=== PATIENT | female | born 1970 | race Caucasian/White ===

== ENCOUNTER 2020-07-08 11:01 | Outpatient (REF) | payer OTHER, SELFPAY ==
[2020-07-08 11:36] LABS: Hematocrit 29.4 % (37-47); Hemoglobin 9.2 g/dl (12.0-16.0); Mean Corpuscular HGB Conc 31.3 g/dl (31.0-35.0); Mean Corpuscular Hemoglobin 26.1 pg (27.0-33.0); Mean Corpuscular Volume 83.5 fL (80-98); Mean Platelet Volume 10.7 fL (9.4-12.3); Platelet Count 210 X10*3/uL (160-400); Red Blood Count 3.52 X10*6/uL (4.20-5.50); Red Cell Distribution Width 13.9 % (11.0-16.0); White Blood Count 7.3 X10*3/uL (4.8-10.8)
[2020-07-08 12:14] LABS: Alanine Aminotransferase 18 U/L (0-31); Alkaline Phosphatase 80 U/L (39-117); Anion Gap 10 (12-20); Aspartate Amino Transferase 20 U/L (5-31); Bilirubin Total 0.5 mg/dL (0.0-1.0); Blood Urea Nitrogen 11 mg/dL (9-16); Calcium 8.6 mg/dL (8.4-10.2); Carbon Dioxide 26 mmol/L (22-29); Chloride 108 mmol/L (96-108); Cholesterol 166 mg/dL; Estimated Glomerular Filt Rate > 60; Glucose Fasting 129 mg/dL (60-99); HDL Cholesterol 45 mg/dL; LDL Cholesterol Calculated 92 mg/dl; Potassium 4.1 mmol/L (3.3-5.1); Sodium 140 mmol/L (135-145); Total Protein 6.5 g/dL (6.5-8.0); Triglycerides 145 mg/dL
[2020-07-08 12:18] LABS: Microalbum/Creatinine Ratio Ur 47.4 ug/mg cr
== END 2020-07-08 11:02 | disposition home or self-care (01) ==
LOC: HO.LAB 11:01
PROVIDERS: PCP Physician Assistant; Visit Provider Physician Assistant
DX: I10 Essential (primary) hypertension (principal)
CPT/HCPCS: 36415; 80053; 80061; 82043; 84443; 85027

== ENCOUNTER 2021-01-06 09:53 | Outpatient (REF) | payer OTHER, SELFPAY ==
--- NOTE | ~2021-01-06 | XR_ITS ---
EXAMINATION: XR CHEST CLINICAL INFORMATION: Shortness of breath COMPARISON: None TECHNIQUE: 2 views of the chest were obtained. FINDINGS: Cardiac silhouette is normal in size. The lungs are well aerated. There is no lobar consolidation. No pleural effusion or pneumothorax. Mild degenerative changes of the thoracic spine. XR/XR chest 2V IMPRESSION: No acute pulmonary pathology.
== END 2021-01-06 09:54 | disposition home or self-care (01) ==
LOC: HO.XRAY 09:53
PROVIDERS: PCP Physician Assistant; Visit Provider Physician Assistant
DX: R06.02 Shortness of breath (principal)
CPT/HCPCS: 71046

== ENCOUNTER 2021-04-22 16:24 | Outpatient (REF) | payer OTHER, SELFPAY ==
[2021-04-22 16:38] LABS: Hematocrit 30.9 % (37.0-47.0); Hemoglobin 8.6 g/dl (12.0-16.0); Mean Corpuscular HGB Conc 27.8 g/dl (31.0-35.0); Mean Corpuscular Hemoglobin 18.7 pg (27.0-33.0); Mean Corpuscular Volume 67.3 fL (80.0-98.0); Mean Platelet Volume 9.7 fL (9.4-12.3); Platelet Count 215 X10*3/uL (160-400); Red Blood Count 4.59 X10*6/uL (4.20-5.50); Red Cell Distribution Width 17.1 % (11.0-16.0); White Blood Count 8.4 X10*3/uL (4.8-10.8)
[2021-04-22 16:54] LABS: Estimated Average Glucose 137 mg/dL; Hemoglobin A1c % 6.4 %
[2021-04-22 17:13] LABS: Alanine Aminotransferase 12 U/L (0-31); Albumin Level 4.1 g/dL (3.5-5.0); Alkaline Phosphatase 88 U/L (39-117); Anion Gap 13 (12-20); Aspartate Amino Transferase 13 U/L (5-31); Bilirubin Total 0.4 mg/dL (0.0-1.0); Blood Urea Nitrogen 10 mg/dL (9-16); Calcium 9.1 mg/dL (8.4-10.2); Carbon Dioxide 23 mmol/L (22-29); Chloride 106 mmol/L (96-108); Cholesterol 171 mg/dL; Estimated Glomerular Filt Rate > 60; Glucose Fasting 116 mg/dL (60-99); HDL Cholesterol 49 mg/dL; Iron 18 mcg/dL (30-160); LDL Cholesterol Calculated 99 mg/dl; Potassium 4.3 mmol/L (3.3-5.1); Sodium 138 mmol/L (135-145); Total Protein 6.8 g/dL (6.5-8.0); Triglycerides 119 mg/dL
[2021-04-22 17:16] LABS: TSH reflex Free T4 1.36 uIU/mL (0.32-4.0)
[2021-04-22 17:23] LABS: Percent Iron Saturation 4 % (15-50); Total Iron Binding Capacity 504 mcg/dL (228-428); Unsaturated Iron Binding 486 ug/dL
== END 2021-04-22 16:25 | disposition home or self-care (01) ==
LOC: HO.LAB 16:24
PROVIDERS: PCP Physician Assistant; Visit Provider Physician Assistant
DX: E78.2 Mixed hyperlipidemia (principal); R73.03 Prediabetes; R14.0 Abdominal distension (gaseous); I10 Essential (primary) hypertension; D50.9 Iron deficiency anemia, unspecified
CPT/HCPCS: 36415; 80053; 80061; 83036; 83540; 84443; 85027

== ENCOUNTER → 2021-04-28 08:00 | Outpatient (REF) | payer OTHER, SELFPAY ==
--- NOTE | 2021-04-28 08:04 | CA_ITS ---
Acquisition Time: 2021-04-28 08:07:55 Total Exercise Time: 00:01:27 Test Indications: SHORTNESS OF BREATH Medications: Protocol: ALBERTO Max HR: 160 BPM 93% of Pred: 171 BPM Max BP: 168/092 mmHG Max Work Load: 3.6 METS Exercise stress test with exercis 1 min 27 sec of Alberto protocol, with moderat e shortness of breath and request to stop exercise, with report of moderate pressure sensation to her epigastric area, without arrythmia, with normotensive and brisk chronotropic response to exercise, achieving 94% MPHR, with nondiagnostic EKG for ischemia due to suboptimal exercise time, however no ischemic changes noted at acheived workload. Once test completed, Pt reports having anemia. Labs reviewed in system shows Hgb 8.6, Hct 30.9 which likely contributes to her sob. Test reviewed with Dr Lua. Msg sent to Valerio VO regarding test results and recommendation for a pharmacological nuclear stress test once anemia is corrected. Referred By: Mal Vernon Overread By: QI FORREST
== END ==
LOC: HO.CARD 08:00
PROVIDERS: Visit Provider Physician Assistant
DX: R06.02 Shortness of breath (principal)
CPT/HCPCS: 93017

== ENCOUNTER 2021-04-29 08:23 | Outpatient (REF) | payer OTHER, SELFPAY ==
--- NOTE | ~2021-04-29 | US_ITS ---
EXAMINATION: US ABDOMEN COMPLETE CLINICAL INFORMATION: Abdominal distention. COMPARISON: None TECHNIQUE: Real-time imaging of the abdominal viscera. FINDINGS: PANCREAS: Normal. ABDOMINAL AORTA: The proximal, mid, and distal segments are normal in caliber. INFERIOR VENA CAVA: Visualized portions are normal. LIVER: The liver is normal in size. The liver contour is normal. There is diffuse liver echogenicity. No focal hepatic lesion. There is no intrahepatic biliary duct dilatation seen. GALLBLADDER: Normal. The gallbladder is physiologically distended without evidence of stones, sludge, polyps, wall thickening or pericholecystic fluid. COMMON BILE DUCT: Normal in caliber measuring 0.5 cm in diameter. RIGHT KIDNEY: Normal. No hydronephrosis. No renal calculi or focal parenchymal lesions. The kidney measures 11.5 cm in maximum dimension. LEFT KIDNEY: Normal. No hydronephrosis. No renal calculi or focal parenchymal lesions. The kidney measures 12.5 cm in maximum dimension. SPLEEN: Normal. The spleen measures 12.3 cm in maximum dimension. FREE FLUID: None. US/US abdomen complete IMPRESSION: Diffuse hepatic steatosis without focal lesion. The rest of the abdominal ultrasound is unremarkable.
== END 2021-04-29 08:24 | disposition home or self-care (01) ==
LOC: HO.HMGCX 08:23
PROVIDERS: PCP Physician Assistant; Visit Provider Physician Assistant
DX: R14.0 Abdominal distension (gaseous) (principal)
CPT/HCPCS: 76700

== ENCOUNTER 2022-03-02 11:54 | Outpatient (REF) | payer OTHER, SELFPAY ==
[2022-03-02 13:32] LABS: Hematocrit 21.5 % (37.0-47.0); Mean Corpuscular HGB Conc 30.2 g/dl (31.0-35.0); Mean Corpuscular Hemoglobin 24.4 pg (27.0-33.0); Mean Corpuscular Volume 80.8 fL (80.0-98.0); Mean Platelet Volume 10.9 fL (9.4-12.3); Platelet Count 223 X10*3/uL (160-400); Red Blood Count 2.66 X10*6/uL (4.20-5.50); Red Cell Distribution Width 14.1 % (11.0-16.0); White Blood Count 5.9 X10*3/uL (4.8-10.8)
[2022-03-02 13:42] LABS: Hemoglobin 6.5 g/dl (12.0-16.0)
[2022-03-02 13:46] LABS: Alanine Aminotransferase 15 U/L (0-31); Albumin Level 3.8 g/dL (3.5-5.0); Alkaline Phosphatase 75 U/L (39-117); Anion Gap 12 (12-20); Aspartate Amino Transferase 17 U/L (5-31); Bilirubin Total 0.3 mg/dL (0.0-1.0); Blood Urea Nitrogen 12 mg/dL (9-16); Calcium 8.8 mg/dL (8.4-10.2); Carbon Dioxide 24 mmol/L (22-29); Chloride 106 mmol/L (96-108); Estimated Glomerular Filt Rate > 60; Glucose Fasting 124 mg/dL (60-99); Iron 24 mcg/dL (30-160); Percent Iron Saturation 5 % (15-50); Potassium 4.3 mmol/L (3.3-5.1); Sodium 138 mmol/L (135-145); Total Iron Binding Capacity 498 mcg/dL (228-428); Total Protein 6.1 g/dL (6.5-8.0); Unsaturated Iron Binding 474 ug/dL
[2022-03-02 14:06] LABS: TSH reflex Free T4 2.75 uIU/mL (0.32-4.0)
[2022-03-02 14:20] LABS: Creatinine Urine 186.71 mg/dL; Microalbum/Creatinine Ratio Ur 13.3 ug/mg cr
== END 2022-03-02 11:55 | disposition home or self-care (01) ==
LOC: HO.10HDL 11:54
PROVIDERS: Visit Provider Physician Assistant
DX: D50.0 Iron deficiency anemia secondary to blood loss (chronic) (principal); I10 Essential (primary) hypertension; R73.03 Prediabetes
CPT/HCPCS: 36415; 80053; 82043; 83540; 84443; 85027

== ENCOUNTER 2022-09-06 09:53 | Outpatient (REF) | payer OTHER, SELFPAY ==
[2022-09-06 10:35] LABS: Hematocrit 34.6 % (37.0-47.0); Hemoglobin 10.8 g/dl (12.0-16.0); Mean Corpuscular HGB Conc 31.2 g/dl (31.0-35.0); Mean Corpuscular Hemoglobin 24.8 pg (27.0-33.0); Mean Corpuscular Volume 79.5 fL (80.0-98.0); Mean Platelet Volume 10.9 fL (9.4-12.3); Platelet Count 223 X10*3/uL (160-400); Red Blood Count 4.35 X10*6/uL (4.20-5.50); Red Cell Distribution Width 15.1 % (11.0-16.0); White Blood Count 8.5 X10*3/uL (4.8-10.8)
[2022-09-06 11:56] LABS: Alanine Aminotransferase 13 U/L (0-31); Albumin Level 3.7 g/dL (3.5-5.0); Alkaline Phosphatase 99 U/L (39-117); Anion Gap 12 (12-20); Aspartate Amino Transferase 17 U/L (5-31); Bilirubin Total 0.4 mg/dL (0.0-1.0); Blood Urea Nitrogen 14 mg/dL (9-16); Calcium 9.3 mg/dL (8.4-10.2); Carbon Dioxide 24 mmol/L (22-29); Chloride 105 mmol/L (96-108); Cholesterol 171 mg/dL; Estimated Glomerular Filt Rate > 60; Glucose Fasting 127 mg/dL (60-99); HDL Cholesterol 45 mg/dL; Iron 40 mcg/dL (30-160); LDL Cholesterol Calculated 104 mg/dl; Percent Iron Saturation 9 % (15-50); Potassium 4.3 mmol/L (3.3-5.1); Sodium 137 mmol/L (135-145); Total Iron Binding Capacity 437 mcg/dL (228-428); Total Protein 6.2 g/dL (6.5-8.0); Triglycerides 110 mg/dL; Unsaturated Iron Binding 397 ug/dL
[2022-09-06 15:09] LABS: Creatinine Urine 172.34 mg/dL; Microalbum/Creatinine Ratio Ur 22.6 ug/mg cr
== END 2022-09-06 09:54 | disposition home or self-care (01) ==
LOC: HO.10HDL 09:53
PROVIDERS: Visit Provider Physician Assistant
DX: D50.0 Iron deficiency anemia secondary to blood loss (chronic) (principal); E78.2 Mixed hyperlipidemia; I10 Essential (primary) hypertension; E66.01 Morbid (severe) obesity due to excess calories; Z68.37 Body mass index [BMI] 37.0-37.9, adult
CPT/HCPCS: 36415; 80053; 80061; 82043; 83540; 84443; 85027

== ENCOUNTER 2023-07-02 09:44 | Outpatient (AMB) | payer OTHER, SELFPAY ==
--- NOTE | 2023-07-02 09:56 | MHC.PC.OV ---
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 Required: No Accompanied by: Self / Same As Patient Allergies Sulfa (Sulfonamide Antibiotics) Allergy (Verified 07/02/23 10:07) Rash Medication List - Last Reconciled 07/02/23 by Mal Vernon PA-C albuterol sulfate 90 mcg/actuation 1 inh inhalation QID 30 days fluticasone propionate 50 mcg/actuation 2 sprays intranasal DAILY 30 days lisinopril 10 mg PO DAILY 90 days medroxyprogesterone (Depo-Provera) 150 mg IM Q12W sertraline (Zoloft) 75 mg (1.5 x 50 mg) PO DAILY 90 days simvastatin 10 mg PO BEDTIME 90 days Tobacco use date assessed: 07/02/23 Dental Screening Dental Screen Date: 07/02/23 Did you have a dental visit in the last 12 months?: Yes Did you have a dental problem in the last 6 months where you did not have access to dental care?: No Was dental information given to patient?: Patient has dentist HPI 6 month f/u HPI Details Patient is a 53year female here today for a follow-up visit. Patient has a past medical history significant for generalized anxiety disorder, obesity, GERD, hypertension. .. Hypertension:? Blood pressure acceptable today in office.? She does not monitor blood pressure at home.? She denies any chest pain, headache or dizziness.? Iron deficiency anemia:? Anemia due to menstrual bleeding. Has been started on Depo injections which has significantly improved her menstrual bleeding. . New onset type 2 diabetes, today's A1c is 7.4 from 6.4.: We did discuss the need to follow a low-carbohydrate diet.? We also discussed starting p.o. intake hypoglycemic medication though patient declines and will consider in the future. 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 1. Little interest or pleasure in doing things: not at all 2. Feeling down, depressed, or hopeless: not at all 3. Trouble falling or staying asleep, or sleeping too much: not at all 4. Feeling tired or having little energy: not at all 5. Poor appetite or overeating: not at all 6. Feeling bad about yourself - or that you are a failure or have let yourself or your family down: not at all 7. Trouble concentrating on things, such as reading the newspaper or watching television: not at all 8. Moving or speaking so slowly that other people could have noticed. Or the opposite - being so fidgety or restless that you have been moving around a lot more than usual: not at all 9. Thoughts that you would be better off or of hurting yourself in some way: not at all Total score: 0 Depression Screening Interpretation: Negative Depression Screening Done: Yes 35929 - PHQ-9 Billing: Yes Source: Developed by Drs. Jarrod Schneider, Pamela Martin, Carlos A Maravilla and colleagues, with an educational ralf from [employer]. Thrive Questionnaire Date Thrive assessed: 07/02/23 I am a: Patient What is your living situation today?: I have a steady place to live Within the past 12 months, did the food you bought not last and you didn't have the money to get more?: Never true Within the past 12 months, did you worry whether your food would run out before you got money to buy more?: Never true Do you have trouble paying for medicines?: No Do you have trouble getting transportation to medical appointments?: No Do you have trouble paying your heating and electricity bill?: No Do you have trouble taking care of your child, family member or friend?: No Do you have trouble with day-to-day activities such as bathing, preparing meals, shopping, managing finances, etc.?: No Are you currently unemployed and looking for a job?: No Are you interested in more education?: No Please select the resources that you would like help with: None Currently or been in a relationship where the following occur: no concerns reported THRIVE Score: 0 AUDIT C Alcohol Use Questionnaire (AUDIT-C) 1. How often do you have a drink containing alcohol?: Monthly or less 2. How many drinks containing alcohol do you have on a typical day when you are drinking?: 1 or 2 3. How often do you have six or more drinks on one occasion?: Never Total Score: 1 ADEOLA-7 AMB Questionnaire ADEOLA-7 Date ADEOLA - 7 assessed: 07/02/23 Feeling nervous, anxious, or on edge: 0 = Not at all Not being able to stop or control worryin = Not at all Worrying too much about different things: 0 = Not at all Trouble relaxin = Not at all Being so restless that it is hard to sit still: 0 = Not at all Becoming easily annoyed or irritable: 0 = Not at all Feeling afraid as if something awful might happen: 0 = Not at all Total ADEOLA-7 score (0-4 normal; 5-9 mild; 10-14 moderate; 15-21 severe): 0 Source: Developed by Drs. Jarrod Schneider, Pamela Martin, Carlos A Maravilla and colleagues, with an educational ralf from [employer]. ADEOLA-7 Assessment Billing ADEOLA-7 Assessment Tool: ADEOLA-7 Assessment 10950 Review of Systems Const Denies headache(s) Eyes Denies loss of vision ENT Denies vertigo, Denies dizziness, Denies headache(s) and Denies sore throat Card Denies chest pain, Denies leg edema and Denies lightheadedness Resp Denies cough, Denies hemoptysis and Denies wheezing GI Denies abdominal pain, Denies melena, Denies constipation, Denies diarrhea and Denies vomiting Denies urinary frequency, Denies dysuria and Denies urinary urgency Musc Denies arthralgias, Denies joint swelling, Denies numbness and Denies tingling Neuro Denies Abnormal speech present, Denies behavioral changes, Denies vertigo, Denies dizziness, Denies headache(s), Denies loss of vision, Denies memory loss, Denies numbness and Denies tingling Psych Denies anxiety, Denies behavioral changes, Denies depression, Denies memory loss and Denies panic attacks Kunal/Lymph Denies easy bleeding and Denies easy bruising Aller/Immun Denies wheezing Physical exam (Primary Care) Vital Signs: Last Vital Signs Pulse 70 07/02/23 09:57 BP 136/88 07/02/23 09:57 Pulse Ox 98 07/02/23 09:57 Oxygen Delivery Method Room Air 07/02/23 09:57 BMI result Body Mass Index 35.4 BMI Assessment/Plan discussion: High Tobacco/Smoking Status: Tobacco use Status Tobacco use date assessed 07/02/23 07/02/23 10:04 Patient Tobacco Use Status Never used Tobacco 07/02/23 09:59 e-Cigarette/Vaping Use Never Used 07/02/23 09:59 PHQ-9: PHQ-9 Score PHQ-9: Total score 0 07/02/23 10:05 Depression Screening Interpretation: Negative Thrive Assessment: Date of Thrive Assessment Date Thrive assessed 07/02/23 07/02/23 10:05 Currently or been in a relationship where the following occur: no concerns reported Const Other: Obese General: healthy appearing, no acute distress, alert and awake Nutritional Appearance: well nourished Orientation/consciousness: oriented to person, oriented to place and oriented to time HENMT Ears: TM's normal bilaterally General nose exam: Normal nasal mucous membranes and turbinates present Eyes Conjunctivae: conjunctivae normal Sclerae: sclerae normal Pupils: Equal, round and reactive pupils present Neck Neck: Yes no lymphadenopathy and Yes no JVD Thyroid: Thyroid normal Carotids: no bruits Resp Effort & Inspection: normal respiratory effort and not tachypneic Auscultation: no crackles, no rales, no rhonchi and no wheezes Cardio Rate: regular rate Rhythm: regular rhythm Heart sounds: no murmurs and normal S1 and S2 GI Palpation (GI): Soft to palpation, nontender, no hepatomegaly and no splenomegaly Auscultation: normal bowel sounds Skin General skin exam: no rashes or lesions noted and dry skin Neuro General: oriented to person, oriented to place and oriented to time Cranial nerves: Yes Equal, round and reactive pupils present Speech: No Abnormal speech present Gait exam (Neuro): Normal gait present Motor exam (neuro): no tremor noted Extrem Right upper extremity: full ROM Left upper extremity: full ROM Right lower extremity: full ROM; no edema Left lower extremity: full ROM; no edema Psych Mental Status: mental status grossly normal Speech and movement: Normal speech and movement present Affect: normal affect Attitude: cooperative Thought process: Normal thought process present Results AMB Hemoglobin A1c AMB Hemoglobin A1c 7.5 % Last Edit by ANABEL Guzmán on 07/02/23 10:07 Assessment and Plan Assessment & Plan (1) DMII (diabetes mellitus, type 2): Code(s): E11.9 - Type 2 diabetes mellitus without complications Qualifiers: 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 Today's A1c was 7.4 from 6.4. We discussed starting oral antihyperglycemic medication though patient would like to hold off and work on lifestyle/ dietary modifications. (2) HLD (hyperlipidemia): Code(s): E78.5 - Hyperlipidemia, unspecified Qualifiers: Hyperlipidemia type: mixed hyperlipidemia Qualified Code(s): E78.2 - Mixed hyperlipidemia Plan: Patient continues on low-dose simvastatin. Recheck lipid panel to ensure LDL below 100 (3) HTN (hypertension): Code(s): I10 - Essential (primary) hypertension Qualifiers: Hypertension type: essential hypertension Qualified Code(s): I10 - Essential (primary) hypertension Plan: Patient's blood pressure acceptable today in office. Patient continues on lisinopril 10 mg Goal blood pressures to be below 140/90 (4) Anemia: Code(s): D64.9 - Anemia, unspecified Qualifiers: Anemia type: iron deficiency Iron deficiency anemia type: chronic blood loss Qualified Code(s): D50.0 - Iron deficiency anemia secondary to blood loss (chronic) Plan: Patient had significant anemia due to vaginal bleeding. She is started Depo which has significantly helped (5) Obese: Code(s): E66.9 - Obesity, unspecified Qualifiers: Obesity type: due to excess calories Obesity classification: adult class 2 (BMI 35 - 39.9) Serious obesity comorbidity presence: with serious comorbidity Body mass index: BMI 35.0-35.9 Qualified Code(s): E66.01 - Morbid (severe) obesity due to excess calories; Z68.35 - Body mass index [BMI] 35.0-35.9, adult Plan: Patient does understand her BMI is over 30 will work on being more physically active and adapting to better eating habits to reduce her weight. Orders: Orders Microalbumin, Random (w Creat) Today I10 - Essential (primary) hypertension AMB Hemoglobin A1c Today R73.01 - Impaired fasting glucose Lipid Panel Today E78.2 - Mixed hyperlipidemia Comprehensive [place]. 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9) Serious obesity comorbidity presence: with serious comorbidity Body mass index: BMI 35.0-35.9 Additional Codes ADEOLA-7 Assessment Billing - ADEOLA-7 Assessment Tool: ADEOLA-7 Assessment 44333 ([id number])
[2023-07-02 09:57] VITALS: BP 136/88; PULSE 70; O2SAT 98; BMI 35.4
== END 2023-07-02 10:27 | disposition home or self-care (01) ==
PROVIDERS: PCP Physician Assistant; Visit Provider Physician Assistant
DX: E11.65 Type 2 diabetes mellitus with hyperglycemia (principal); E66.01 Morbid (severe) obesity due to excess calories; Z68.35 Body mass index [BMI] 35.0-35.9, adult; E78.2 Mixed hyperlipidemia; R73.01 Impaired fasting glucose; I10 Essential (primary) hypertension; D50.0 Iron deficiency anemia secondary to blood loss (chronic)
CPT/HCPCS: 83036; 99214

== ENCOUNTER 2023-09-14 10:46 | Outpatient (REF) | payer OTHER, SELFPAY ==
[2023-09-14 16:35] LABS: Creatinine Urine 174.83 mg/dL; Microalbum/Creatinine Ratio Ur 9.1 ug/mg cr (<30)
[2023-09-14 17:06] LABS: Alanine Aminotransferase 16 U/L (0-31); Albumin Level 4.1 g/dL (3.5-5.0); Alkaline Phosphatase 137 U/L (39-117); Anion Gap 12 (12-20); Aspartate Amino Transferase 13 U/L (5-31); Bilirubin Total 0.6 mg/dL (0.0-1.0); Blood Urea Nitrogen 10 mg/dL (9-16); Calcium 10.3 mg/dL (8.4-10.2); Carbon Dioxide 21 mmol/L (22-29); Chloride 111 mmol/L (96-108); Cholesterol 164 mg/dL (<200); Estimated Glomerular Filt Rate > 60; Glucose Fasting 143 mg/dL (60-99); HDL Cholesterol 39 mg/dL (>40); LDL Cholesterol Calculated 102 mg/dL (<100); Sodium 140 mmol/L (135-145); Triglycerides 116 mg/dL (<150)
== END 2023-09-14 10:47 | disposition home or self-care (01) ==
LOC: HO.10HDL 10:46
PROVIDERS: Visit Provider Physician Assistant
DX: I10 Essential (primary) hypertension (principal); E78.2 Mixed hyperlipidemia
CPT/HCPCS: 36415; 80053; 80061; 82043; 82570

== ENCOUNTER 2023-09-17 09:23 | Outpatient (AMB) | payer OTHER, SELFPAY ==
[2023-09-17 09:44] VITALS: BP 102/66; PULSE 70; O2SAT 97; BMI 35.4
--- NOTE | 2023-09-17 09:44 | A.OFFPC_ITS ---
Vital Signs 09/17/23 09:44 Height 5 ft 3 in Weight 200 lb BMI 35.4 BP 102/66 Blood Pressure Location Lt brachial Position Sitting Pulse 70 Pulse Source Pulse Oximeter Pulse Oximetry (%) 97 Oxygen Delivery Method Room Air Intake Visit Reasons: PE Intake Note: Patient is here today for a physical. Enroute Controller Required: No Accompanied by: Self / Same As Patient Allergies Sulfa (Sulfonamide Antibiotics) Allergy (Verified 09/17/23 09:51) Rash Medication List - Last Reconciled 09/17/23 by Mal Vernon PA-C albuterol sulfate 90 mcg/actuation 1 inh inhalation QID 30 days fluticasone propionate 50 mcg/actuation 2 sprays intranasal DAILY 30 days lisinopril 10 mg PO DAILY 90 days medroxyprogesterone (Depo-Provera) 150 mg IM Q12W sertraline (Zoloft) 75 mg (1.5 x 50 mg) PO DAILY 90 days simvastatin 10 mg PO BEDTIME 90 days Tobacco use date assessed: 07/02/23 Dental Screening Dental Screen Date: 07/02/23 HPI PE HPI Details Patient is a 53 year female here today for a routine annual physical. Patient has a past medical history significant for generalized anxiety disorder, obesity , GERD, hypertension. .. Hypertension:? Blood pressure acceptable today in office.? She does not monitor blood pressure at home.? She denies any chest pain, headache or dizziness.? Iron deficiency anemia:? Anemia due to menstrual bleeding. Has been started on Depo injections which has significantly improved her menstrual bleeding. . New onset type 2 diabetes, most recent A1c is 7.5, most recent fasting blood sugar 137.: We did discuss the need to follow a low-carbohydrate diet. PLAN: Will start low-dose metformin for better glycemic control. Colonoscopy: considering Cologaurd still. HUMAN RESOURCES BENEFITS ADMINISTRATOR: See HUMAN RESOURCES BENEFITS ADMINISTRATOR at [facility] Mammo: needs mammo ( goes to [facility]) VAccine: UTD with COVID and FLu vaccine, Need Tdap (considering) , considering shingrex PFSH Surgical History delivery delivered Family History Paternal Uncle Pancreatic cancer Social History Housing: House Alcohol intake: current Alcohol intake frequency: holidays/special occasions only Patient Tobacco Use Status: Never used Tobacco e-Cigarette/Vaping Use: Never Used Second Hand Smoke Exposure: No service: No Current occupational status: employed 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 Jarrod Schneider, Pamela Martin, Carlos A Maravilla and colleagues, with an educational ralf from [employer]. Review of Systems Const Denies body aches, Denies chills, Denies excessive sweating, Denies fatigue, Denies fever(s) and Denies headache(s) Eyes Denies blurry vision ENT Denies dysphagia, Denies vertigo, Denies dizziness, Denies headache(s), Denies hearing loss and Denies tinnitus Card Denies chest pain, Denies chest pain with activity, Denies syncope, Denies irregular heart rhythm and Denies dyspnea Resp Denies chest congestion, Denies cough, Denies hemoptysis, Denies dyspnea and Denies wheezing GI Denies abdominal pain, Denies melena, Denies hematochezia, Denies coffee ground emesis, Denies dysphagia, Denies diarrhea, Denies nausea and Denies vomiting Denies urinary frequency, Denies dysuria, Denies urinary hesitancy and Denies urinary urgency Musc Denies arthralgias, Denies limited range of motion, Denies muscle cramps and Denies muscle weakness Skin/Breast Denies rash and Denies skin ulcer Neuro Denies Abnormal speech present, Denies confusion, Denies vertigo, Denies dizziness, Denies syncope, Denies headache(s), Denies memory loss and Denies seizure-like activity Psych Denies anxiety, Denies confusion, Denies depression, Denies memory loss, Denies panic attacks and Denies paranoia Endo Denies excessive sweating, Denies fatigue, Denies flushing, Denies polydipsia and Denies polyuria Aller/Immun Denies wheezing Physical exam (Primary Care) Vital Signs: Last Vital Signs Pulse 70 09/17/23 09:44 BP 102/66 09/17/23 09:44 Pulse Ox 97 09/17/23 09:44 Oxygen Delivery Method Room Air 09/17/23 09:44 BMI result Body Mass Index 35.4 BMI Assessment/Plan discussion: High BMI High, discussed plan: lifestyle, weight reduction, dietary and physical activity Tobacco/Smoking Status: Tobacco use Status Tobacco use date assessed 07/02/23 09/17/23 09:45 Patient Tobacco Use Status Never used Tobacco 09/17/23 09:45 e-Cigarette/Vaping Use Never Used 09/17/23 09:45 Thrive Assessment: Date of Thrive Assessment Date Thrive assessed 07/02/23 09/17/23 09:45 Const General: cooperative, comfortable, no acute distress, alert and awake; No confusion Orientation/consciousness: oriented to person, oriented to place, patient oriented x3 and No confusion HENMT Head: Yes normocephalic Ears: external ears normal and TM's normal bilaterally Face and sinus: No sinus tenderness Mouth: Normal oral and palatal mucosa present and tongue normal Teeth and gingiva: dentition normal and gingiva normal Throat: Yes posterior oropharynx normal, Yes tonsils normal and Yes uvula midline Eyes Conjunctivae: conjunctivae normal Sclerae: sclerae normal Pupils: Equal, round and reactive pupils present EOM: EOMs intact bilaterally Direct Ophthalmoscopy: No no photophobia Neck Neck: Yes no lymphadenopathy, No tender and Yes no JVD Thyroid: Thyroid normal Carotids: no bruits Chest Chest palpation & inspection: no tenderness Resp Effort & Inspection: normal respiratory effort, no audible wheezes, not labored and no stridor Auscultation: no crackles, no rales, no rhonchi and no wheezes Cardio Jugular venous distension: no JVD Rate: regular rate, not bradycardic and not tachycardic Rhythm: regular rhythm Bruits: no carotid bruits Peripheral pulses: Peripheral pulses 2+ throughout GI Inspection: Yes normal to inspection, No abdominal wall ecchymosis and No visible herniation Palpation (GI): Soft to palpation, nontender, no guarding, not rigid and No hepatosplenomegaly present Auscultation: normoactive bowel sounds General: Yes no CVA tenderness Back/Spine/Pelvis Back: no CVA tenderness and No back tenderness Cervical Spine: cervical ROM normal Thoracic/Lumbar Spine: thoracic and lumbar spine normal to inspection, straight leg raise negative bilaterally, No thoraco-lumbar ROM limited and No lumbar spinal tenderness Skin Lesions: no lesions Rashes: no rashes Wounds: no wounds Neuro General: oriented to person, oriented to place, patient oriented x3, CN's II-XI intact bilaterally and No confusion Cranial nerves: Yes Equal, round and reactive pupils present and Yes Normal accommodation reflex present Cognition (Neuro): normal cognition Speech: No Abnormal speech present Gait exam (Neuro): Normal gait present Motor exam (neuro): 5/5 motor strength present throughout Extrem Right upper extremity: full ROM; no cyanosis Left upper extremity: full ROM; no cyanosis Right lower extremity: no edema Left lower extremity: no edema Psych Appearance: grossly normal Mental Status: mental status grossly normal Affect: normal affect Attitude: cooperative Thought process: Normal thought process present Assessment and Plan Assessment & Plan (1) Annual physical exam: Code(s): Z00.00 - Encounter for general adult medical examination without abnormal findings (2) DMII (diabetes mellitus, type 2): Code(s): E11.9 - Type 2 diabetes mellitus without complications Qualifiers: Diabetes mellitus complication status: with hyperglycemia Diabetes mellitus custodial insulin use: without terminal carman use Qualified Code(s): E11.65 - Type 2 diabetes mellitus with hyperglycemia Plan: Patient's type 2 diabetes suboptimally controlled. Most recent A1c 7.5 and fasting blood sugar 137 . She is now willing to start low-dose metformin with largest meal a day. Goal A1c is to be below 7.0. (3) HLD (hyperlipidemia): Code(s): E78.5 - Hyperlipidemia, unspecified Qualifiers: Hyperlipidemia type: mixed hyperlipidemia Qualified Code(s): E78.2 - Mixed hyperlipidemia Plan: Patient continues on low-dose simvastatin. Recheck lipid panel to ensure LDL below 100 (4) HTN (hypertension): Code(s): I10 - Essential (primary) hypertension Qualifiers: Hypertension type: essential hypertension Qualified Code(s): I10 - Essential (primary) hypertension Plan: Patient's blood pressure acceptable today in office. Patient continues on lisinopril 10 mg Goal blood pressures to be below 140/90 (5) Anemia: Code(s): D64.9 - Anemia, unspecified Qualifiers: Anemia type: iron deficiency Iron deficiency anemia type: chronic blood loss Qualified Code(s): D50.0 - Iron deficiency anemia secondary to blood loss (chronic) Plan: Patient had significant anemia due to vaginal bleeding. She is started Depo which has significantly helped her anemia symptoms. Will recheck CBC to assure normalization (6) Obese: Code(s): E66.9 - Obesity, unspecified Qualifiers: Body mass index: BMI 35.0-35.9 Obesity classification: adult class 2 (BMI 35 - 39.9) Obesity type: due to excess calories Serious obesity comorbidity presence: with serious comorbidity Qualified Code(s): E66.01 - Morbid (severe) obesity due to excess calories; Z68.35 - Body mass index [BMI] 35.0-35.9, adult Plan: Patient does understand her BMI is over 30 will work on being more physically active and adapting to better eating habits to reduce her weight. (7) GERD (gastroesophageal reflux disease): Code(s): K21.9 - Gastro-esophageal reflux disease without esophagitis Qualifiers: Esophagitis presence: without esophagitis Qualified Code(s): K21.9 - Gastro-esophageal reflux disease without esophagitis Plan: Does report having abdominal pain and bloating after eating. Advised on using OTC antacid medication. Will test for stool H pylori detection. Orders: Orders Complete Blood Count no Diff 09/17/23 D50.0 - Iron deficiency anemia secondary to blood loss (chronic) Hemoglobin A1c 09/17/23 E11.65 - Type 2 diabetes mellitus with hyperglycemia Comprehensive [place]. Panel Fast 09/17/23 E11.65 - Type 2 diabetes mellitus with hyperglycemia H pylori Ag Stool 09/17/23 K21.9 - Gastro-esophageal reflux disease without esophagitis Referrals Cologuard Test Z12.11 - Encounter for screening for malignant neoplasm of colon Medications: New metformin ER 500 mg PO DAILY 90 days 90 tabs 1RF E11.65 - Type 2 diabetes mellitus with hyperglycemia omeprazole 20 mg PO DAILY 14 days 14 caps 0RF K21.9 - Gastro-esophageal reflux disease without esophagitis Patient Instructions: Goals: Controlled type 2 diabetes, A1c below 7.0 Barriers: Compliance on exercise and diet. Coding Level of Care Code Est Pt Prev Care 40-64y(67878) Diagnoses Annual physical exam Z00.00 Type 2 diabetes mellitus with hyperglycemia, without long-term current use of insulin E11.65 Diabetes mellitus complication status: with hyperglycemia Diabetes mellitus terminal carman insulin use: without custodial use Mixed hyperlipidemia E78.2 Hyperlipidemia type: mixed hyperlipidemia Essential hypertension I10 Hypertension type: essential hypertension Iron deficiency anemia due to chronic blood loss D50.0 Anemia type: iron deficiency Iron deficiency anemia type: chronic blood loss Class 2 severe obesity due to excess calories with serious comorbidity and body mass index (BMI) of 35.0 to 35.9 in adult E66.01; Z68.35 Body mass index: BMI 35.0-35.9 Obesity classification: adult class 2 (BMI 35 - 39.9) Obesity type: due to excess calories Serious obesity comorbidity presence: with serious comorbidity Gastroesophageal reflux disease without esophagitis K21.9 Esophagitis presence: without esophagitis
== END 2023-09-17 10:23 | disposition home or self-care (01) ==
PROVIDERS: PCP Physician Assistant; Visit Provider Physician Assistant
DX: Z00.00 Encounter for general adult medical examination without abnormal findings (principal); E11.65 Type 2 diabetes mellitus with hyperglycemia; E78.2 Mixed hyperlipidemia; I10 Essential (primary) hypertension; D50.0 Iron deficiency anemia secondary to blood loss (chronic); K21.9 Gastro-esophageal reflux disease without esophagitis
CPT/HCPCS: 99396

== ENCOUNTER 2024-02-29 10:23 | Outpatient (REF) | payer OTHER, SELFPAY ==
[2024-02-29 11:00] LABS: Hematocrit 40.9 % (37.0-47.0); Hemoglobin 13.8 g/dl (12.0-16.0); Mean Corpuscular HGB Conc 33.7 g/dl (31.0-35.0); Mean Corpuscular Hemoglobin 28.5 pg (27.0-33.0); Mean Corpuscular Volume 84.3 fL (80.0-98.0); Mean Platelet Volume 10.5 fL (9.4-12.3); Platelet Count 200 X10*3/uL (160-400); Red Blood Count 4.85 X10*6/uL (4.20-5.50)
[2024-02-29 11:05] LABS: Estimated Average Glucose 143 mg/dL; Hemoglobin A1C 164.0587 umol/L; Hemoglobin A1c % 6.6 % (<6.0); Total Hemoglobin (HGBA1C) 3349.5799 umol/L
[2024-02-29 11:32] LABS: Alanine Aminotransferase 21 U/L (0-31); Albumin Level 4.2 g/dL (3.5-5.0); Alkaline Phosphatase 140 U/L (39-117); Anion Gap 11 (12-20); Aspartate Amino Transferase 14 U/L (5-31); Bilirubin Total 0.6 mg/dL (0.0-1.0); Blood Urea Nitrogen 13 mg/dL (9-16); Calcium 10.5 mg/dL (8.4-10.2); Carbon Dioxide 24 mmol/L (22-29); Chloride 109 mmol/L (96-108); Estimated Glomerular Filt Rate > 60; Glucose Fasting 141 mg/dL (60-99); Potassium 4.1 mmol/L (3.3-5.1); Sodium 140 mmol/L (135-145)
== END 2024-02-29 10:24 | disposition home or self-care (01) ==
LOC: HO.10HDL 10:23
PROVIDERS: Visit Provider Physician Assistant
DX: D50.0 Iron deficiency anemia secondary to blood loss (chronic) (principal); E11.65 Type 2 diabetes mellitus with hyperglycemia
CPT/HCPCS: 36415; 80053; 83036; 85027

== ENCOUNTER 2024-03-04 10:06 | Outpatient (AMB) | payer OTHER, SELFPAY ==
--- NOTE | 2024-03-04 10:12 | A.OFFPC_ITS ---
Vital Signs 03/04/24 10:16 Height 5 ft 3 in Weight 197 lb 8 oz BMI 35.0 BP 130/70 Blood Pressure Location Lt brachial Position Sitting Pulse 72 Pulse Source Pulse Oximeter Pulse Oximetry (%) 97 Oxygen Delivery Method Room Air Intake Visit Reasons: f/u DMII Sales Effectiveness Manager Required: No Accompanied by: Self / Same As Patient Allergies Sulfa (Sulfonamide Antibiotics) Allergy (Verified 03/04/24 10:30) Rash Medication List - Last Reconciled 03/04/24 by Mal Vernon PA-C albuterol sulfate 90 mcg/actuation 1 inh inhalation QID 30 days fluticasone propionate 50 mcg/actuation 2 sprays intranasal DAILY 30 days lisinopril 10 mg PO DAILY 90 days medroxyprogesterone (Depo-Provera) 150 mg IM Q12W metformin ER 500 mg PO DAILY 90 days omeprazole 20 mg PO DAILY 14 days sertraline (Zoloft) 75 mg (1.5 x 50 mg) PO DAILY 90 days simvastatin 10 mg PO BEDTIME 90 days Tobacco use date assessed: 07/02/23 Dental Screening Dental Screen Date: 07/02/23 HPI f/u DMII HPI Details Patient is a 54-year-old female here today for a follow-up visit. Patient has a past medical history significant for type 2 diabetes, generalized anxiety disorder, obesity, GERD, hypertension. .. Hypertension:? Blood pressure acceptable today in office.? She does not monitor blood pressure at home.? She denies any chest pain, headache or dizziness.? Iron deficiency anemia:? Anemia due to menstrual bleeding. Most recent CBC showing significant improvement. Has been started on Depo injections which has significantly improved her menstrual bleeding. . New onset type 2 diabetes,: Most recent A1c at 6.6 from 7.5. Patient continues with metformin 500 extended release daily.: We did discuss the need to follow a low-carbohydrate diet. Laboratory Tests 04/22/21 01/10/22 03/02/22 16:32 09:48 12:00 RBC 2.66 L D Hgb 6.5 L* D Hct Chloride Creatinine Fasting Glucose Hemoglobin A1c % 6.4 Hgb A1c (Clinic) 6.4 H Iron Cholesterol LDL Cholesterol, C alc TSH Urine Microalbumin 09/06/22 09/06/22 07/02/23 09:56 10:00 09:47 RBC 4.35 D Hgb 10.8 L D Hct 34.6 L D Chloride Creatinine 0.72 Fasting Glucose 127 H Hemoglobin A1c % Hgb A1c (Clinic) 7.5 H Iron 40 Cholesterol LDL Cholesterol, C alc 104 TSH 2.60 Urine Microalbumin 39.0 09/14/23 02/29/24 10:50 10:30 RBC Hgb 13.8 D Hct Chloride 111 H Creatinine 0.75 Fasting Glucose 143 H 141 H Hemoglobin A1c % 6.6 H Hgb A1c (Clinic) Iron Cholesterol 164 LDL Cholesterol, C alc 102 H TSH Urine Microalbumin 16.0 PFSH Surgical History delivery delivered Family History Paternal Uncle Pancreatic cancer Social History Housing: House Alcohol intake: current Alcohol intake frequency: holidays/special occasions only Patient Tobacco Use Status: Never used Tobacco e-Cigarette/Vaping Use: Never Used Second Hand Smoke Exposure: No service: No Current occupational status: employed 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 1. Little interest or pleasure in doing things: not at all 2. Feeling down, depressed, or hopeless: not at all 3. Trouble falling or staying asleep, or sleeping too much: not at all 4. Feeling tired or having little energy: not at all 5. Poor appetite or overeating: not at all 6. Feeling bad about yourself - or that you are a failure or have let yourself or your family down: not at all 7. Trouble concentrating on things, such as reading the newspaper or watching television: not at all 8. Moving or speaking so slowly that other people could have noticed. Or the opposite - being so fidgety or restless that you have been moving around a lot more than usual: not at all 9. Thoughts that you would be better off or of hurting yourself in some way: not at all Total score: 0 Depression Screening Interpretation: Negative Depression Screening Done: Yes 40480 - PHQ-9 Billing: Yes Source: Developed by Drs. Jarrod Schneider, Pamela Martin, Carlos A Maravilla and colleagues, with an educational ralf from [employer]. Thrive Questionnaire Date Thrive assessed: 03/04/24 I am a: Patient What is your living situation today?: I have a steady place to live Within the past 12 months, did the food you bought not last and you didn't have the money to get more?: Never true Within the past 12 months, did you worry whether your food would run out before you got money to buy more?: Never true Do you have trouble paying for medicines?: No Do you have trouble getting transportation to medical appointments?: No Do you have trouble paying your heating and electricity bill?: No Do you have trouble taking care of your child, family member or friend?: No Do you have trouble with day-to-day activities such as bathing, preparing meals, shopping, managing finances, etc.?: No Are you currently unemployed and looking for a job?: No Are you interested in more education?: No Please select the resources that you would like help with: None Currently or been in a relationship where the following occur: No concerns reported THRIVE Score: 0 AUDIT C Alcohol Use Questionnaire (AUDIT-C) 1. How often do you have a drink containing alcohol?: Monthly or less 2. How many drinks containing alcohol do you have on a typical day when you are drinking?: 1 or 2 3. How often do you have six or more drinks on one occasion?: Never Total Score: 1 ADEOLA-7 AMB Questionnaire ADEOLA-7 Date ADEOLA - 7 assessed: 03/04/24 Feeling nervous, anxious, or on edge: 0 = Not at all Not being able to stop or control worryin = Not at all Worrying too much about different things: 0 = Not at all Trouble relaxin = Not at all Being so restless that it is hard to sit still: 0 = Not at all Becoming easily annoyed or irritable: 0 = Not at all Feeling afraid as if something awful might happen: 0 = Not at all Total ADEOLA-7 score (0-4 normal; 5-9 mild; 10-14 moderate; 15-21 severe): 0 Source: Developed by Drs. Jarrod Schneider, Pamela Martin, CarlosA Maravilla and colleagues, with an educational ralf from [employer]. ADEOLA-7 Assessment Billing ADEOLA-7 Assessment Tool: ADEOLA-7 Assessment [id number] Review of Systems Const Denies headache(s) Eyes Denies loss of vision ENT Denies vertigo, Denies dizziness, Denies headache(s) and Denies sore throat Card Denies chest pain, Denies leg edema and Denies lightheadedness Resp Denies cough, Denies hemoptysis and Denies wheezing GI Denies abdominal pain, Denies melena, Denies constipation, Denies diarrhea and Denies vomiting Denies urinary frequency, Denies dysuria and Denies urinary urgency Musc Denies arthralgias, Denies joint swelling, Denies numbness and Denies tingling Neuro Denies Abnormal speech present, Denies behavioral changes, Denies vertigo, Pranav es dizziness, Denies headache(s), Denies loss of vision, Denies memory loss, Denies numbness and Denies tingling Psych Denies anxiety, Denies behavioral changes, Denies depression, Denies memory loss and Denies panic attacks Kunal/Lymph Denies easy bleeding and Denies easy bruising Aller/Immun Denies wheezing Physical exam (Primary Care) Vital Signs: Last Vital Signs Pulse 72 03/04/24 10:16 BP 130/70 03/04/24 10:16 Pulse Ox 97 03/04/24 10:16 Oxygen Delivery Method Room Air 03/04/24 10:16 BMI result Body Mass Index 35.0 Tobacco/Smoking Status: Tobacco use Status Tobacco use date assessed 07/02/23 03/04/24 10:12 Patient Tobacco Use Status Never used Tobacco 03/04/24 10:12 e-Cigarette/Vaping Use Never Used 03/04/24 10:12 PHQ-9: PHQ-9 Score PHQ-9: Total score 0 03/04/24 10:30 Depression Screening Interpretation: Negative Thrive Assessment: Date of Thrive Assessment Date Thrive assessed 03/04/24 03/04/24 10:24 Currently or been in a relationship where the following occur: No concerns reported Const General: healthy appearing, no acute distress, alert and awake Nutritional Appearance: well nourished Orientation/consciousness: oriented to person, oriented to place and oriented to time HENMT Ears: TM's normal bilaterally General nose exam: Normal nasal mucous membranes and turbinates present Eyes Conjunctivae: conjunctivae normal Sclerae: sclerae normal Pupils: Equal, round and reactive pupils present Neck Neck: Yes no lymphadenopathy and Yes no JVD Thyroid: Thyroid normal Carotids: no bruits Resp Effort & Inspection: normal respiratory effort and not tachypneic Auscultation: no crackles, no rales, no rhonchi and no wheezes Cardio Rate: regular rate Rhythm: regular rhythm Heart sounds: no murmurs and normal S1 and S2 GI Palpation (GI): Soft to palpation, nontender, no hepatomegaly and no splenomegaly Auscultation: normal bowel sounds Skin General skin exam: no rashes or lesions noted and dry skin Neuro General: oriented to person, oriented to place and oriented to time Cranial nerves: Yes Equal, round and reactive pupils present Speech: No Abnormal speech present Gait exam (Neuro): Normal gait present Motor exam (neuro): no tremor noted Extrem Right upper extremity: full ROM Left upper extremity: full ROM Right lower extremity: full ROM; no edema Left lower extremity: full ROM; no edema Psych Mental Status: mental status grossly normal Speech and movement: Normal speech and movement present Affect: normal affect Attitude: cooperative Thought process: Normal thought process present Coding Level of Care Code Est Pt Level 4 (28341) Diagnoses Type 2 diabetes mellitus with hyperglycemia, without long-term current use of insulin E11.65 Diabetes mellitus complication status: with hyperglycemia Diabetes mellitus shelter insulin use: without terminal carman use Mixed hyperlipidemia E78.2 Hyperlipidemia type: mixed hyperlipidemia ADEOLA (generalized anxiety disorder) F41.1 Essential hypertension I10 Hypertension type: essential hypertension Iron deficiency anemia due to chronic blood loss D50.0 Anemia type: iron deficiency Iron deficiency anemia type: chronic blood loss Additional Codes ADEOLA-7 Assessment Billing - ADEOLA-7 Assessment Tool: ADEOLA-7 Assessment [id number] ([id number]) Assessment & Plan Assessment & Plan (1) DMII (diabetes mellitus, type 2): Code(s): E11.9 - Type 2 diabetes mellitus without complications Category: Medical Qualifiers: Diabetes mellitus complication status: with hyperglycemia Diabetes mellitus terminal carman insulin use: without shelter use Qualified Code(s): E11.65 - Type 2 diabetes mellitus with hyperglycemia Plan: Patient's type 2 diabetes now well controlled with current dose of metformin 500. Goal A1c is to be below 7. (2) HLD (hyperlipidemia): Code(s): E78.5 - Hyperlipidemia, unspecified Category: Medical Qualifiers: Hyperlipidemia type: mixed hyperlipidemia Qualified Code(s): E78.2 - Mixed hyperlipidemia Plan: Most recent lipid panel showing excellent control over total cholesterol and LDL. Continues on simvastatin 10 mg with good effect. Goal LDL is to remain below 100 (3) ADEOLA (generalized anxiety disorder): Code(s): F41.1 - Generalized anxiety disorder Category: Medical Plan: Patient reports her anxiety has been well controlled with current dose of Zoloft. (4) HTN (hypertension): Code(s): I10 - Essential (primary) hypertension Category: Medical Qualifiers: Hypertension type: essential hypertension Qualified Code(s): I10 - Essential (primary) hypertension Plan: Patient's blood pressure acceptable today in office. Will continue her current dose of lisinopril 10 mg with goal blood pressure to remain below 140/90. (5) Anemia: Code(s): D64.9 - Anemia, unspecified Category: Medical Qualifiers: Anemia type: iron deficiency Iron deficiency anemia type: chronic blood loss Qualified Code(s): D50.0 - Iron deficiency anemia secondary to blood loss (chronic) Plan: Patient's severe anemia has resolved with resolution of her mold dumper bleeding. Continues on Depo injections with good effect. Orders: Orders Microalbumin, Random (w Creat) Today E11.65 - Type 2 diabetes mellitus with hyperglycemia Lipid Panel Today E78.2 - Mixed hyperlipidemia Complete Blood Count no Diff Today D50.0 - Iron deficiency anemia secondary to blood loss (chronic) Comprehensive [place]. Panel Fast Today E11.65 - Type 2 diabetes mellitus with hyperglycemia Patient Instructions: Goal: Blood pressure to remain below 140/90, A1c to below 7 0 Barrier: Adherence to physical activity and healthy eating habits
[2024-03-04 10:16] VITALS: BP 130/70; PULSE 72; O2SAT 97; BMI 35.0
== END 2024-03-04 10:43 | disposition home or self-care (01) ==
PROVIDERS: PCP Physician Assistant; Visit Provider Physician Assistant
DX: E11.65 Type 2 diabetes mellitus with hyperglycemia (principal); E78.2 Mixed hyperlipidemia; F41.1 Generalized anxiety disorder; I10 Essential (primary) hypertension; D50.0 Iron deficiency anemia secondary to blood loss (chronic)

== ENCOUNTER → 2024-03-04 10:06 | Outpatient (BNVA) | payer OTHER, SELFPAY | PROVIDERS: PCP Physician Assistant; Visit Provider Physician Assistant | DX: E11.65 Type 2 diabetes mellitus with hyperglycemia (principal); E78.2 Mixed hyperlipidemia; F41.1 Generalized anxiety disorder; I10 Essential (primary) hypertension; D50.0 Iron deficiency anemia secondary to blood loss (chronic); Z79.84 Long term (current) use of oral hypoglycemic drugs; Z79.899 Other long term (current) drug therapy | CPT/HCPCS: 96127 ==

== ENCOUNTER 2025-03-23 14:56 | Outpatient (AMB) | payer OTHER, SELFPAY ==
--- NOTE | 2025-03-23 14:59 | MHC.PC.OV ---
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 Accompanied by: Self / Same As Patient Allergies Sulfa (Sulfonamide Antibiotics) Allergy (Verified 03/23/25 15:07) Rash Medication List - Last Reconciled 03/23/25 by Cuate Andrews MD albuterol sulfate 90 mcg/actuation 1 inh inhalation QID 30 days fluticasone propionate 50 mcg/actuation 2 sprays intranasal DAILY 30 days lisinopril 10 mg PO DAILY 90 days omeprazole 20 mg PO DAILY PRN sertraline (Zoloft) 75 mg (1.5 x 50 mg) PO DAILY 90 days simvastatin 10 mg PO BEDTIME 90 days Tobacco use date assessed: 03/23/25 Dental Screening Dental Screen Date: 03/23/25 Did you have a dental visit in the last 12 months?: No Did you have a dental problem in the last 6 months where you did not have access to dental care?: No Was dental information given to patient?: No HPI HPI Comments History of Present Illness Details The patient is a 55-year-old female presenting with a suspected case of shingles. She has never had shingles before. Symptoms began on Sunday when she awoke with hip numbness, followed by her noticing a rash on her back on Sunday. The rash, located on her back, hip, and groin area, has become severely painful. She has been taking Tylenol and ibuprofen with minimal relief. The patient's medical history is significant for diabetes. Her current medications include sertraline and simvastatin, and she takes omeprazole as needed. She has not received the shingles vaccine. 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 Jarrod Schneider, Pamela Martin, Carlos A Maravilla and colleagues, with an educational ralf from [employer]. Review of Systems Const Details: As per HPI. Physical exam (Primary Care) Vital Signs: Last Vital Signs Temp 97.1 F 03/23/25 15:03 Pulse 84 03/23/25 15:03 Resp 18 03/23/25 15:03 BP 146/72 H 03/23/25 15:03 Pulse Ox 99 03/23/25 15:03 Oxygen Delivery Method Room Air 03/23/25 15:03 BMI result Body Mass Index 36.0 Tobacco/Smoking Status: Tobacco use Status Tobacco use date assessed 03/23/25 03/23/25 15:16 Patient Tobacco Use Status Never used Tobacco 03/23/25 15:00 e-Cigarette/Vaping Use Never Used 03/23/25 15:00 Thrive Assessment: Date of Thrive Assessment Date Thrive assessed 03/04/24 03/23/25 15:00 Const Other: Pertinent findings are in BOLD GENERAL APPEARANCE NAD, activity normal for age, well developed/ well nourished, no cyanosis, pallor, or diaphoresis. EYES lids/conjunctiva normal. EARS/NOSE/THROAT Mucous membranes moist, nares normal, lips/teeth normal uvula midline without oral pharyngeal erythema, exudate or swelling TMs normal bilaterally. No lymphangitis/lymphedema. HEAD/NECK normocephalic atraumatic, no facial trauma, neck is supple. RESPIRATORY respiratory effort normal, speaks in full sentences, no tripod position, no accessory muscle use. Lungs clear to auscultation without rhonchi, wheezes, rales CARDIAC Regular rate and rhythm, no edema. ABDOMINAL Soft, ND/NT. No evidence of fluid wave. No pulsatile masses on exam, rebound tenderness, Yadav sign or pain over Mcburney's point. MUSCLES/EXTREMITIES No abnormal range of motion, no swelling. SKIN Warm, pink and dry. No rashes, dermatoses, petechiae or lesions. Herpes zoster with petechial lesions on the left hip area. NEUROLOGICAL Speech is clear and appropriate. Normal level of consciousness. Gait and coordination are normal. 5/5 strength in all extremities. PSYCH Normal mood and affect. Judgement/competence is appropriate Coding Level of Care Code Est Pt Level 3 (94703) Diagnoses Herpes zoster without complication B02.9 Herpes zoster complications: without complications Time Spent (min) 20 Assessment & Plan Assessment & Plan (1) Shingles: Code(s): B02.9 - Zoster without complications Category: Medical Qualifiers: Herpes zoster complications: without complications Qualified Code(s): B02.9 - Zoster without complications Plan: - The diagnosis of shingles was confirmed based on clinical presentation. - Prescribed valacyclovir 1 gram three times a day for seven days. - Prescribed prednisone 10 mg daily for five days to accelerate healing. - Prescribed lidocaine cream for pain and advised the patient it is also available over the counter. - A work excuse will be provided, allowing the patient to return to work on March 30. - Recommended the patient receive the shingles vaccine in the future to prevent recurrence. - Advised her to discuss this with her primary care provider, Valerio, during her scheduled appointment in April. Plan I confirmed the patient's suspicion of shingles based on the rash presentation. I explained that we would start an antiviral medication, valacyclovir, to be taken three times daily for seven days. For pain and healing, I prescribed a short course of low-dose prednisone (10 mg for five days) due to her history of diabetes, as well as a prescription for lidocaine cream, noting it is also available [id number]. We discussed providing a work note to keep her out of work until March 30. I counseled her on the importance of getting the shingles vaccine in the future to prevent recurrence and advised her to discuss it with her primary care provider at her upcoming appointment. Finally, I instructed her to seek care if she observes any signs of infection, such as pus. Medications: New prednisone 10 mg PO DAILY 5 tabs 0RF Cuate Andrews MD valacyclovir 1,000 mg PO TID 21 tabs 0RF Cuate Andrews MD lidocaine 5% 1 appl topical TID PRN 15 grams 0RF pain Cuate Andrews MD Changed From omeprazole 20 mg PO DAILY 14 days 14 caps 0RF K21.9 - Gastro-esophageal reflux disease without esophagitis To omeprazole 20 mg PO DAILY PRN K21.9 - Gastro-esophageal reflux disease without esophagitis Mal Vernon PA-C
[2025-03-23 15:03] VITALS: BP 146/72; PULSE 84; RESP 18; TEMP 36.2; O2SAT 99; BMI 36.0
== END 2025-03-23 15:32 | disposition home or self-care (01) ==
LOC: HO.HMCH 14:58
PROVIDERS: PCP Physician Assistant; Visit Provider Internal Medicine
DX: B02.9 Zoster without complications (principal)

== ENCOUNTER 2025-05-19 11:22 | Outpatient (AMB) | payer OTHER, SELFPAY ==
--- NOTE | 2025-05-19 11:38 | MHC.PC.OV ---
Vital Signs 05/19/25 11:40 Height 5 ft 3 in Weight 201 lb 4 oz BMI 35.6 BP 130/62 Blood Pressure Location Lt brachial Position Sitting Pulse 69 Pulse Source Pulse Oximeter Temp 97.3 F Temp Source Temporal Artery Scan Pulse Oximetry (%) 97 Oxygen Delivery Method Room Air Intake Visit Reasons: annual exam Intake Note: Patient is here today for a physical. 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: Not Required per policy Accompanied by: Self / Same As Patient Allergies Sulfa (Sulfonamide Antibiotics) Allergy (Verified 05/19/25 11:51) Rash Medication List - Last Reconciled 05/19/25 by Mal Vernon PA-C albuterol sulfate 90 mcg/actuation 1 inh inhalation QID 30 days fluticasone propionate 50 mcg/actuation 2 sprays intranasal DAILY 30 days lidocaine 5% 1 appl topical TID PRN lisinopril 10 mg PO DAILY 90 days omeprazole 20 mg PO DAILY PRN sertraline (Zoloft) 75 mg (1.5 x 50 mg) PO DAILY 90 days simvastatin 10 mg PO BEDTIME 90 days valacyclovir 1,000 mg PO TID Tobacco use date assessed: 05/19/25 Dental Screening Dental Screen Date: 03/23/25 HPI annual exam HPI Details Patient is a 55-year-old female here today for a routine annual physical. Patient has a past medical history significant for type 2 diabetes, generalized anxiety disorder, obesity, GERD, hypertension. .. Hypertension:? Blood pressure acceptable today in office.? She does not monitor blood pressure at home.? She denies any chest pain, headache or dizziness.? Iron deficiency anemia:? Anemia due to menstrual bleeding. Most recent CBC showing significant improvement. Has been started on Depo injections which has significantly improved her menstrual bleeding. . type 2 diabetes,: Most recent A1c at 6.6 from 7.5. Patient continues with metformin 500 extended release daily.: We did discuss the need to follow a low-carbohydrate diet. Colonoscopy: considering Cologaurd still. 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 Mammo: needs mammo ( goes to 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 Cognitive needs: No Hearing needs: No Vision needs: Yes (Glasses) Questionnaire PHQ-9 Over the last 2 weeks, how often have you been bothered by any of the following problems? 1. Little interest or pleasure in doing things: not at all 2. Feeling down, depressed, or hopeless: not at all 3. Trouble falling or staying asleep, or sleeping too much: not at all 4. Feeling tired or having little energy: not at all 5. Poor appetite or overeating: not at all 6. Feeling bad about yourself - or that you are a failure or have let yourself or your family down: not at all 7. Trouble concentrating on things, such as reading the newspaper or watching television: not at all 8. Moving or speaking so slowly that other people could have noticed. Or the opposite - being so fidgety or restless that you have been moving around a lot more than usual: not at all 9. Thoughts that you would be better off or of hurting yourself in some way: not at all Total score: 0 Depression Screening Interpretation: Negative Depression Screening Done: Yes Source: Developed by Drs. Jarrod Schneider, Pamela Martin, Carlos A Maravilla and colleagues, with an educational ralf from [email or web address]. Thrive Questionnaire Date Thrive assessed: 05/19/25 I am a: Patient What is your living situation today?: I have a steady place to live Within the past 12 months, did the food you bought not last and you didn't have the money to get more?: Never true Within the past 12 months, did you worry whether your food would run out before you got money to buy more?: Never true Do you have trouble paying for medicines?: No Do you have trouble getting transportation to medical appointments?: No Do you have trouble paying your heating and electricity bill?: No Do you have trouble taking care of your child, family member or friend?: No Do you have trouble with day-to-day activities such as bathing, preparing meals, shopping, managing finances, etc.?: No Are you currently unemployed and looking for a job?: No Are you interested in more education?: No Please select the resources that you would like help with: None Currently or been in a relationship where the following occur: I choose not to answer THRIVE Score: 0 AUDIT C Alcohol Use Questionnaire (AUDIT-C) 1. How often do you have a drink containing alcohol?: Never Total Score: 0 ADEOLA-7 AMB Questionnaire ADEOLA-7 Date ADEOLA - 7 assessed: 05/19/25 Feeling nervous, anxious, or on edge: 0 = Not at all Not being able to stop or control worryin = Not at all Worrying too much about different things: 0 = Not at all Trouble relaxin = Not at all Being so restless that it is hard to sit still: 0 = Not at all Becoming easily annoyed or irritable: 0 = Not at all Feeling afraid as if something awful might happen: 0 = Not at all Total ADEOLA-7 score (0-4 normal; 5-9 mild; 10-14 moderate; 15-21 severe): 0 Source: Developed by Drs. Jarrod Schneider, Pamela Martin, Carlos A Maravilla and colleagues, with an educational ralf from [email or web address]. Physical exam (Primary Care) Vital Signs: Last Vital Signs Temp 97.3 F 05/19/25 11:40 Pulse 69 05/19/25 11:40 BP 130/62 05/19/25 11:40 Pulse Ox 97 05/19/25 11:40 Oxygen Delivery Method Room Air 05/19/25 11:40 BMI result Body Mass Index 35.6 Tobacco/Smoking Status: Tobacco use Status Tobacco use date assessed 05/19/25 05/19/25 11:50 Patient Tobacco Use Status Never used Tobacco 05/19/25 11:50 e-Cigarette/Vaping Use Never Used 05/19/25 11:50 PHQ-9: PHQ-9 Score PHQ-9: Total score 0 05/19/25 11:53 Depression Screening Interpretation: Negative Thrive Assessment: Date of Thrive Assessment Date Thrive assessed 05/19/25 05/19/25 11:50 Currently or been in a relationship where the following occur: I choose not to answer Results AMB Hemoglobin A1c AMB Hemoglobin A1c 6.6 % Last Edit by SUDEEP Washburn on 05/19/25 11:55 Coding Diagnoses Annual physical exam Z00.00 RUQ abdominal pain R10.11 Essential hypertension I10 Hypertension type: essential hypertension Mixed hyperlipidemia E78.2 Hyperlipidemia type: mixed hyperlipidemia Type 2 diabetes mellitus with hyperglycemia, without long-term current use of insulin E11.65 Diabetes mellitus retirement insulin use: without retirement use Diabetes mellitus complication status: with hyperglycemia ADEOLA (generalized anxiety disorder) F41.1 Assessment & Plan Assessment & Plan (1) Annual physical exam: Code(s): Z00.00 - Encounter for general adult medical examination without abnormal findings Category: Medical (2) RUQ abdominal pain: Code(s): R10.11 - Right upper quadrant pain Category: Medical (3) HTN (hypertension): Code(s): I10 - Essential (primary) hypertension Category: Medical Qualifiers: Hypertension type: essential hypertension Qualified Code(s): I10 - Essential (primary) hypertension (4) HLD (hyperlipidemia): Code(s): E78.5 - Hyperlipidemia, unspecified Category: Medical Qualifiers: Hyperlipidemia type: mixed hyperlipidemia Qualified Code(s): E78.2 - Mixed hyperlipidemia (5) DMII (diabetes mellitus, type 2): Code(s): E11.9 - Type 2 diabetes mellitus without complications Category: Medical Qualifiers: Diabetes mellitus retirement insulin use: without pipe washer use Diabetes mellitus complication status: with hyperglycemia Qualified Code(s): E11.65 - Type 2 diabetes mellitus with hyperglycemia (6) ADEOLA (generalized anxiety disorder): Code(s): F41.1 - Generalized anxiety disorder Category: Medical Orders: Orders Hemoglobin A1c Today E11.65 - Type 2 diabetes mellitus with hyperglycemia Comprehensive [place]. Panel Fast Today E11.65 - Type 2 diabetes mellitus with hyperglycemia IRON PROFILE Today D50.0 - Iron deficiency anemia secondary to blood loss (chronic), D50.9 - Iron deficiency anemia, unspecified AMB Hemoglobin A1c Today E11.65 - Type 2 diabetes mellitus with hyperglycemia Microalbumin, Random (w Creat) Today E11.65 - Type 2 diabetes mellitus with hyperglycemia Complete Blood Count no Diff Today E11.65 - Type 2 diabetes mellitus with hyperglycemia Lipid Panel Today E78.2 - Mixed hyperlipidemia Medications: New metformin 500 mg PO DAILY 90 tabs 1RF 90 days E11.65 - Type 2 diabetes mellitus with hyperglycemia Refilled simvastatin 10 mg PO BEDTIME 90 tabs 0RF 90 days I10 - Essential (primary) hypertension albuterol sulfate 90 mcg/actuation 1 inh inhalation QID 8.5 grams 0RF 30 days R06.02 - Shortness of breath fluticasone propionate 50 mcg/actuation administer into each nostril 2 sprays intranasal DAILY 9.9 mL 1RF 30 days J30.89 - Other allergic rhinitis lidocaine 5% 1 appl topical TID PRN 15 grams 0RF pain E11.65 - Type 2 diabetes mellitus with hyperglycemia lisinopril 10 mg PO DAILY 90 tabs 1RF 90 days I10 - Essential (primary) hypertension sertraline (Zoloft) 75 mg (1.5 x 50 mg) PO DAILY 135 tabs 1RF 90 days F41.1 - Generalized anxiety disorder Discontinued valacyclovir Discontinued Reason: Doctor's Order 1,000 mg PO TID 21 tabs 0RF
[2025-05-19 11:40] VITALS: BP 130/62; PULSE 69; TEMP 36.3; O2SAT 97; BMI 35.6
== END 2025-05-19 12:26 | disposition home or self-care (01) ==
LOC: HO.HMCH 11:23
PROVIDERS: PCP Physician Assistant; Visit Provider Physician Assistant
DX: E11.65 Type 2 diabetes mellitus with hyperglycemia (principal)

== ENCOUNTER → 2025-05-19 11:22 | Outpatient (BNVA) | payer OTHER, SELFPAY | PROVIDERS: PCP Physician Assistant; Visit Provider Physician Assistant | DX: E11.65 Type 2 diabetes mellitus with hyperglycemia (principal); Z13.31 Encounter for screening for depression; Z13.39 Encounter for screening examination for other mental health and behavioral disorders | CPT/HCPCS: 83036; 96127 ==